=== PATIENT | female | born 1945 | race Caucasian/White ===

== ENCOUNTER 2018-04-15 08:54 | Inpatient (IN) ==
[2018-04-15] MEDS ORDERED: ASPIRIN PO ONE (09:29)
[2018-04-15] MEDS ORDERED: ZOFRAN IV ONE ×2 (09:31→13:30)
--- NOTE | 2018-04-15 09:39 | PROVIDER DOCUMENTATION ---
HPI-Chest Pain - General Chief Complaint: Weakness Stated Complaint: VOMITING Time Seen by Provider: 04/15/18 09:23 Source: patient Allergies/Adverse Reactions: Patient Allergies Allergy/AdvReac Type Severity Reaction Status Date / Time doxycycline Allergy RASH Verified 07/28/17 20:21 metoclopramide HCl * Allergy ANAPHYLAXIS Verified 07/28/17 20:21 [From [facility]] Home Medications: Home Medication List Medication Instructions Recorded Confirmed Last Taken Type Magnesium Citrate [Citrate of 300 ml PO ONCE #1 bottle 04/01/15 02/03/18 Rx Magnesia] 300 ML Metformin [Glucophage] 500 mg PO BID 04/01/15 02/03/18 02/02/18 History 500 MG Atorvastatin Calcium [Lipitor] 10 mg PO DAILY 07/28/17 02/03/18 02/02/18 History 10 MG Duloxetine HCl 60 mg PO DAILY 07/28/17 02/03/18 02/02/18 History 60 MG Omeprazole [Prilosec] 40 mg PO DAILY 07/28/17 02/03/18 02/02/18 History 40 MG Triamterene/Hydrochlorothiazid 1 cap PO DAILY 07/28/17 02/03/18 02/03/18 07:00 History [Triamterene-Hctz 37.5-25 mg Cp] 1 CAP Albuterol [Albuterol Neb] 2.5 mg INH Q4H PRN PRN #1 pkg 02/03/18 Unknown Rx Fluconazole [Diflucan] 150 mg PO DAILY #2 tab 02/03/18 Unknown Rx Levofloxacin [Levaquin] 750 mg PO DAILY #10 tab 02/03/18 Unknown Rx Nebulizer [Aeroneb Go Nebulizer] 1 ea MC Q4H PRN PRN #1 ea 02/03/18 Unknown Rx Prednisone 40 mg PO DAILY #10 tab 02/03/18 Unknown Rx - History of Present Illness-CP Nature of Presenting Problem: CC: "My chest has been hurting" Pt complains of left-sided chest pain that goes to left neck for two weeks. Worsens with exertion. Also complains of cough, chills, bodyache. +exposure to flu. Last stress test 5 years ago. Multiple cardiac risk factors. Location: reports: central Chest Pain Radiation: reports: neck Quality of Pain: reports: pressure Severity in ED: moderate Onset/Duration: other Timing: still present Context/Activities at Onset: reports: none Modifying Factors: improves with: other. worse with: nothing Associated Symptoms: reports: fatigue, fever/chills. denies: abdominal pain, back pain, diaphoresis, dizziness, edema, shortness of breath, syncope, weakness Nitro Today/Relief: no nitro taken today Aspirin Treatment Today: no aspirin today Similar Symptoms Previously?: No Recently Seen Here or By Another Healthcare Provider: No Review of Systems - Adult - REVIEW OF SYSTEMS - ADULT Constitutional: reports: see HPI, chills, fatique Eyes: reports: no symptoms reported Ears, Nose, Mouth & Throat: reports: no symptoms reported Cardiovascular: reports: see HPI, chest pain. denies: edema, palpitations Respiratory: reports: see HPI, cough. denies: hemoptysis, pleurisy, shortness of breath Gastrointestinal: reports: no symptoms reported. denies: abdominal pain Genitourinary: reports: no symptoms reported Musculoskeletal: reports: no symptoms reported. denies: back pain Integumentary: reports: no symptoms reported. denies: rash Neurological: reports: no symptoms reported Psychiatric: reports: no symptoms reported Endocrine: reports: no symptoms reported Hematologic/Lymphatic: reports: no symptoms reported Allergic/Immunologic: reports: no symptoms reported All Other Systems: Reviewed and Negative Past History - Adult - PAST MEDICAL HISTORY-ADULT Review of Records: reports: Old Records Reviewed, Nursing Assessment Review, Medications Reviewed, Social history reviewed & non-contributory. Major Childhood Illnesses: reports: denies history Cardiovascular: reports: HTN Respiratory: reports: denies history Gastrointestinal: reports: GERD, other (hiatal hernia) Obstetrical/Gynecological: reports: denies history Genitourinary: reports: denies history Musculoskeletal: reports: arthritis (RA), osteoporosis Neurological: reports: denies history Endocrine/Immune: reports: Diabetes Other Conditions: reports: denies history - PRIOR SURGERIES/PROCEDURES Surgical/Procedure History: reports: appendectomy, cholecystectomy, hysterectomy , back/neck (back), other (abdominal cyst removed) - IMMUNIZATION STATUS Childhood Immunizations: See Nurse Assessment Flu Vaccine: See Nurse Assessment - FAMILY HISTORY Family History: reviewed, not pertinent - SOCIAL HISTORY Smoking: denies Substance Use: none/never Alcohol Use Frequency: never Living Situation: family Physical Exam-General - PHYSICAL EXAM-ADULT Initial Vital Signs Reviewed: Yes - CONSTITUTIONAL General Appearance: appears well, alert, no apparent distress - EYES Eyes: pink conjunctivae - HEAD, EARS, NOSE, MOUTH & THROAT HENMT: moist mucous membranes - NECK Neck: supple - RESPIRATORY Respiratory: lungs clear, normal breath sounds - CARDIOVASCULAR Cardiovascular: normal peripheral pulses, regular rate, rhythm - GASTROINTESTINAL (ABDOMEN) Abdominal Exam: non tender, soft, no organomegaly, no pulsatile mass - MUSCULOSKELETAL Back Exam: normal inspection Extremity: normal gait, normal inspection, no pedal edema, no calf tenderness - SKIN Integumentary: normal color, normal turgor, warm/dry - NEUROLOGIC Neurologic: grossly normal Progress - PLAN OF CARE/RESULTS Progress/Plan/Lab Results: Vital Signs - 8 hr 04/15/18 09:05 Temperature 99.1 F Pulse Rate 87 Respiratory Rate 20 Blood Pressure 135/85 O2 Sat by Pulse Oximetry 92 L Laboratory Results - last 24 hr 04/15/18 04/15/18 04/15/18 09:38 09:43 09:43 WBC 6.23 RBC 4.66 Hgb 12.5 Hct 39.7 MCV 85.2 MCH 26.8 L MCHC 31.5 L RDW Std Deviation 16.3 H Plt Count 218 MPV 10.4 Immature Gran % (Auto) 0.2 Neut % (Auto) 75.4 H Lymph % (Auto) 11.7 L [place] % (Auto) 12.5 H Eos % (Auto) 0.0 Baso % (Auto) 0.2 Immature Gran # (Auto) 0.01 Neut # (Auto) 4.70 Lymph # (Auto) 0.73 L [place] # (Auto) 0.78 H Eos # (Auto) 0.00 Baso # (Auto) 0.01 PT INR PTT (Actin FS) Sodium Potassium Chloride Carbon Dioxide Anion Gap BUN Creatinine Estimated GFR/1.73 m2 BUN/Creatinine Ratio Glucose Calculated Osmolality Calcium Total Bilirubin AST ALT Alkaline Phosphatase Creatine Kinase Troponin T Gjp-O-Gysybllekzt Pept Total Protein Albumin Globulin Albumin/Globulin Ratio Plasma Lactate 1.8 Influenza A (Rapid) POSITIVE A Influenza B (Rapid) NEGATIVE 04/15/18 04/15/18 04/15/18 09:43 09:43 09:43 WBC RBC Hgb Hct MCV MCH MCHC RDW Std Deviation Plt Count MPV Immature Gran % (Auto) Neut % (Auto) Lymph % (Auto) [place] % (Auto) Eos % (Auto) Baso % (Auto) Immature Gran # (Auto) Neut # (Auto) Lymph # (Auto) [place] # (Auto) Eos # (Auto) Baso # (Auto) PT 13.1 INR 0.94 PTT (Actin FS) 26.6 Sodium 137 Potassium 4.1 Chloride 94 L Carbon Dioxide 29 Anion Gap 14 BUN 15 Creatinine 1.0 H Estimated GFR/1.73 m2 55 BUN/Creatinine Ratio 15 Glucose 143 H Calculated Osmolality 277 Calcium 8.8 Total Bilirubin 0.20 AST 65 H ALT 33 Alkaline Phosphatase 68 Creatine Kinase 41 Troponin T Jmn-V-Hjkbsfioqut Pept 287 Total Protein 6.2 L Albumin 3.9 Globulin 2.0 Albumin/Globulin Ratio 2.0 Plasma Lactate Influenza A (Rapid) Influenza B (Rapid) 04/15/18 09:43 WBC RBC Hgb Hct MCV MCH MCHC RDW Std Deviation Plt Count MPV Immature Gran % (Auto) Neut % (Auto) Lymph % (Auto) [place] % (Auto) Eos % (Auto) Baso % (Auto) Immature Gran # (Auto) Neut # (Auto) Lymph # (Auto) [place] # (Auto) Eos # (Auto) Baso # (Auto) PT INR PTT (Actin FS) Sodium Potassium Chloride Carbon Dioxide Anion Gap BUN Creatinine Estimated GFR/1.73 m2 BUN/Creatinine Ratio Glucose Calculated Osmolality Calcium Total Bilirubin AST ALT Alkaline Phosphatase Creatine Kinase Troponin T < 0.010 Arj-R-Ehiryllnfno Pept Total Protein Albumin Globulin Albumin/Globulin Ratio Plasma Lactate Influenza A (Rapid) Influenza B (Rapid) Orders Category Date Time Status Cardiac Monitoring DIRECTED Care 04/15/18 09:30 Active Saline Loc NOW Care 04/15/18 09:30 Active CHEST-PORTABLE [RAD] Stat Exams 04/15/18 09:29 Completed BLOOD CULTURE [BLDCUL] Stat Lab 04/15/18 09:58 Ordered CBC WITH ELECTRONIC DIFF [HEME] Stat Lab 04/15/18 09:43 Completed CK PROFILE [SP CHEM] Stat Lab 04/15/18 09:43 Completed COMPREHENSIVE METABOLIC PANEL [CHEM] Stat Lab 04/15/18 09:[address] Stat Lab 04/15/18 09:38 Completed LACTATE, PLASMA [CHEM] Stat Lab 04/15/18 09:43 Completed PRO B-NATRIURETIC PEPTIDE Stat Lab 04/15/18 09:43 Completed PROTIME WITH INR [COAG] Stat Lab 04/15/18 09:43 Completed PTT [COAG] Stat Lab 04/15/18 09:43 Completed TROPONIN T Stat Lab 04/15/18 09:43 Completed Aspirin Med 04/15/18 09:29 Discontinued 325 mg PO NOW ONE Nitroglycerin Med 04/15/18 10:45 Discontinued 0.5 inch TOP NOW ONE Ondansetron [Zofran] Med 04/15/18 09:31 Discontinued 4 mg IV NOW ONE CP/SOB/Palp >45 yrs of Age Stat Oth 04/15/18 09:29 Ordered EKG [EKG] Stat Ther 04/15/18 09:30 Draft Transfer/Admit Order [TRANSFER] Routine Transfer 04/15/18 10:[address] Mckeon Result Diagrams: 04/15/18 09:43 04/15/18 09:43 - EKG 1 Time of EKG reading by physician:: 09:35 EKG Read and Signed by:: Tatum Mckeon EKG Interpretation (*Must complete 3 of following elements*): Normal Rate: 83 Rhythm: nsr [place]: normal QRS: normal GA Interval: normal ST Wave: normal - XRAY 1 Impression: See EMR Report (EXAM: CHEST-PORTABLE HISTORY: cp TECHNIQUE: Chest single view COMPARISON: 02/03/2018 FINDINGS: The lungs are well expanded. The heart is not enlarged. The vessels are not distended. There are no infiltrates. No effusion identified. IMPRESSION: Negative exam.) - CONSULTS/PCP/HOSPITALIST Notification #1 *Consult/PCP/Hospitalist*: Dr. Castillo Time Discussed: 10:57 Consult Disposition: Admit Departure - Departure Date of Disposition Decision: 04/15/18 Time of Disposition Decision: 10:56 DIAGNOSIS: Influenza Chest pain Qualifiers: Chest pain type: unspecified Qualified Code(s): R07.9 - Chest pain, unspecified Disposition: ADMITTED INPATIENT 09 Certified Medical Emergency: Emergent Condition: Stable Referrals and Follow-Ups: None,PCP [Primary Care Provider] - - Critical Care Note This patient required my direct & personal management of CC.: No Attestation - Physician/ OLIVIA Attestation Patient care was provided by Advanced Practice Provider:: Yes Advanced Practice Provider:: Bebeto Barrera Advanced Practice Provider documentation review:: The Mid-level provider documentation, treatment plan and medical decision making was reviewed by the physician who agrees with all treatment and medical decision making by the MLP. The physician spent face to face time with patient:: No Advanced Practice Provider documentation review:: Supervising physician onsite and consulted in the evaluation and care of this patient. The physician did not have a face to face encounter with the patient.
[2018-04-15 10:07] LABS: BASO# 0.01 X1000 (0.0-0.2); BASO% 0.2 % (0.0-0.8); HEMATOCRIT 39.7 % (37.0-47.0); HEMOGLOBIN 12.5 g/dL (12.0-16.0); IMM GRAN# 0.01 X1000 (0.0-0.04); IMM GRAN% 0.2 % (0.0-0.5); LYMPH# 0.73 X1000 (1.2-3.4); LYMPH% 11.7 % (20.5-51.1); MCH 26.8 PG (27-31); MCHC 31.5 g/dL (33-37); MCV 85.2 FL (81-99); MONO# 0.78 X1000 (0.11-0.59); MONO% 12.5 % (1.7-9.3); MPV 10.4 FL (7.4-10.4); NEUT% 75.4 % (42.2-75.2); PLT 218 X1000 (130-400); RBC 4.66 XMIL (4.2-5.4); RDW 16.3 % (11.5-14.5); WBC 6.23 X1000 (4.8-10.8)
--- NOTE | 2018-04-15 10:15 | EKG Report ---
Test Performed on : 04/15/2018 09:31:20 AM Test Reason : chest pain Blood Pressure : / mmHG Vent. Rate : 083 BPM Atrial Rate : 083 BPM P-R Int : 132 ms QRS Dur : 096 ms QT Int : 410 ms P-R-T Axes : 037 023 029 degrees QTc Int : 481 ms Normal sinus rhythm. Normal ECG No previous ECGs available Unconfirmed Result
[2018-04-15 10:24] LABS: INR 0.94; PROTIME 13.1 Seconds (11.0-16.0)
[2018-04-15 10:25] LABS: PTT 26.6 Seconds (22.3-41.8)
--- NOTE | 2018-04-15 10:25 | Diag Imaging Result Doc PS360 ---
EXAM: CHEST-PORTABLE HISTORY: cp TECHNIQUE: Chest single view COMPARISON: 02/03/2018 FINDINGS: The lungs are well expanded. The heart is not enlarged. The vessels are not distended. There are no infiltrates. No effusion identified. IMPRESSION: Negative exam. Electronically signed by Kurtis Schrader 04/15/2018 10:23 AM
[2018-04-15 10:26] LABS: ALBUMIN 3.9 g/dL (3.5-5.0); CALCIUM 8.8 mg/dL (8.8-10.2); POTASSIUM 4.1 mmol/L (3.5-5.1); TOTAL BILIRUBIN 0.2 mg/dL (0.20-1.00); TOTAL PROTEIN 6.2 g/dL (6.3-8.3)
[2018-04-15 10:31] LABS: INFLUENZA A POSITIVE (NEGATIVE); INFLUENZA B NEGATIVE (NEGATIVE)
[2018-04-15] MEDS ORDERED: NITROGLYCERIN TOP ONE (10:45)
--- NOTE | 2018-04-15 14:43 | HISTORY AND PHYSICAL ---
PRIMARY CARE PHYSICIAN: Dr. Nesbitt. CHIEF COMPLAINT: Left-sided chest pain that radiated to her neck for 2 weeks, worsens with exertion. Also complained of a cough, chills, and body aches with exposure to the flu recently. HISTORY OF PRESENTING ILLNESS: This is a 73-year-old morbidly obese female, who presents to [facility] ER with complaints of left-sided chest pain that goes to her left neck for 2 weeks, that progressively has worsened. It worsens with exertion. She also states she has had a cough, chills, body ache, and a recent exposure to the flu. Her workup in the emergency room showed her first set of cardiac enzymes were negative. Influenza A was positive. Influenza B was negative. Chest x-ray was negative so she will be admitted for further evaluation and treatment. PAST MEDICAL HISTORY: Diabetes type 2, hyperlipidemia, GERD, hypertension, osteoarthritis, osteoporosis, bronchitis, fibromyalgia, rheumatoid arthritis, sleep apnea, and depression. PAST SURGICAL HISTORY: Appendectomy, cholecystectomy, and hysterectomy. FAMILY HISTORY: Reviewed and noncontributory. SOCIAL HISTORY: She lives with family. Smokes occasionally and denies any alcohol or illicit drug use. ALLERGIES: Doxycycline and metoclopramide. HOME MEDICATIONS: We will need to obtain a current list. Review and restart as appropriate. We will have nursing staff update and confirm home medications first. DIAGNOSTIC STUDIES: Laboratory data showed a white blood cell count of 6.23, hemoglobin of 12.5, hematocrit 39.7, platelets 218,000. PT of 13.1 and INR 0.94. Sodium 137, potassium 4.1, chloride 94, CO2 of 29, BUN of 15, creatinine 1, glucose 143. Cardiac enzyme was negative x1 set. ProBNP of 287. Plasma lactate 1.8. Influenza A was positive. Influenza B was negative. Chest x-ray showed a negative exam. EKG showed normal sinus rhythm at 83. REVIEW OF SYSTEMS: She denied any fever. She was positive for chills, body aches, chest pain that radiated to her left neck, nonproductive cough. Denied any abdominal pain, constipation, diarrhea, or burning or hurting with urination. PHYSICAL EXAMINATION: VITAL SIGNS: On arrival she had a temperature of 99.1 degrees, pulse 87, respirations 20, blood pressure 135/85, saturating 92% on room air. GENERAL: This is a 73-year-old female, who is lying in the bed and answers questions appropriately. HENT: Normocephalic, atraumatic. Normal ENT inspection. Oropharynx and nares are clear. EYES: Pupils are equal, round, and reactive to light and accommodation. Extraocular movements are intact. NECK: Normal inspection. Normal range of motion. LUNGS: With wheezing noted to the upper lung [place] bilaterally, appears to be more upper airway wheezing than true bronchial wheezing. Equal lung expansion and chest wall movement noted. HEART: Regular rate and rhythm. No murmurs, rubs, or gallops. ABDOMEN: Soft, nontender, nondistended. Bowel sounds are present x4 quadrants. MUSCULOSKELETAL: She has 5/5 strength x4 extremities. NEUROLOGICAL: The cranial nerves 2 through 12 are grossly intact. ASSESSMENT: 1. Chest pain. 2. Influenza A. 3. Diabetes, type 2. 4. Hypertension. PLAN: She will be admitted to the medical unit. Placed on telemetry. O2 per protocol. Diabetic diet. We need to update and confirm home medications, and then we will review and restart as appropriate. We will do serial cardiac enzymes for a total of 3 sets. Zofran 4 mg IV q.4 h, p.r.n., Tylenol [address] q[address] on Tamiflu 75 mg p.o. b.i.d. for 5 days. Further orders after seen by attending. Dictated by DANIA Lloyd for Young Castillo MD cc: DANIA Lloyd MD Stephen A. Branning, MD
[2018-04-15] MEDS ORDERED: ZOFRAN IV PRN (15:48)
[2018-04-15] MEDS ORDERED: ALBUTEROL NEB INH PRN (16:53)
[2018-04-15] MEDS: TAMIFLU PO SCH ×2 (18:01→21:01)
[2018-04-15] MEDS: GLUCOPHAGE PO SCH (18:01)
[2018-04-15] MEDS: TYLENOL PO PRN (18:06)
[2018-04-15] MEDS ORDERED: NS 1,000 ML IV ONE (20:46)
[2018-04-15] MEDS: CYMBALTA PO SCH (21:01)
--- NOTE | 2018-04-15 21:03 | HISTORY AND PHYSICAL ---
The patient was admitted for chest pain. According to the patient though, this chest pain has been going off and on for a while more than 2 weeks. She had a stress test about 5 years ago it was negative. She does have risk factors including diabetes but she has had more chest pain over last several days but it turns out she has influenza A which causes myalgias but somehow because the ER felt that she had too many risk factors to go home with chest pain she was placed in obs for chest pain. Any ways we will place her in obs, observe her, telemetry. I do not think it is safe or advisable to do a stress test right now plus we have a working alternative diagnosis frankly and we will go from there. This is a service admission. cc: Young Castillo MD
[2018-04-16] MEDS: TYLENOL PO PRN (02:13)
[2018-04-16] MEDS ORDERED: PRILOSEC PO SCH (07:00)
[2018-04-16] MEDS: TAMIFLU PO SCH ×2 (08:38→20:36)
[2018-04-16] MEDS: GLUCOPHAGE PO SCH (08:38)
[2018-04-16] MEDS ORDERED: PREDNISONE PO SCH (09:00)
[2018-04-16] MEDS ORDERED: TENORMIN PO SCH (09:00)
[2018-04-16] MEDS ORDERED: DYAZIDE PO SCH (09:00)
[2018-04-16] MEDS: HUMULIN R (PARKWAY) SUBQ SCH ×3 (11:36→17:28)
[2018-04-16] MEDS ORDERED: NORCO-7.5 PO ONE (13:19)
[2018-04-16] MEDS ORDERED: NORCO-7.5 PO PRN (13:19)
--- NOTE | 2018-04-16 15:02 | Diag Imaging Result Doc PS360 ---
EXAM: CT THORAX W/CONTRAST INDICATION: pneumonia TECHNIQUE: This exam was performed using automated exposure control, adjustment of mA or kV according to patient size, and/or use of iterative reconstruction technique. COMPARISON: 04/01/2015 FINDINGS: There is minimal linear atelectasis and/or scarring at both lung bases. The lungs are clear, otherwise. There is no airspace consolidation. There is no pleural fluid collection and no pneumothorax. There is no cardiomegaly. There is no evidence of significant mediastinal or hilar lymphadenopathy. There is no mediastinal fluid collection. Limited views of the upper abdomen reveals at least mild hepatic steatosis. IMPRESSION: Very mild subsegmental atelectasis versus scarring at the lung bases. No evidence of acute chest pathology. Electronically signed by Vikash Breen 04/16/2018 3:00 PM
[2018-04-16 15:30] VITALS: BP 145/79
--- NOTE | 2018-04-16 18:39 | PROGRESS NOTE ---
DATE: 04/16/2018 SUBJECTIVE: She is doing okay the following day. She is still having some chest discomfort, but her cardiac enzymes have been negative. Workup thus far has really been negative. I think this is all influenza A. Her CT really did not show any pneumonia. I am waiting on her echo report to see if there is anything going on there. The patient is doing well otherwise. DISPOSITION: Will likely be discharged today on Tamiflu. She can follow up as an outpatient for stress testing if required, although again, pain is very atypical. Reproducible with palpation. It just feels like this is very most likely just flu and possibly some chondritis, myalgias associated as such. Anticipate discharge soon. cc: Young Castillo MD
[2018-04-16] MEDS: CYMBALTA PO SCH (20:36)
[2018-04-16] MEDS ORDERED: LIPITOR PO SCH (21:00)
--- NOTE | 2018-04-16 21:34 | ECHO REPORT ---
ORDER DATE: 04/16/2018 INDICATION FOR THE PROCEDURE: Chest pain. FINDINGS: 1. Right atrium appears normal in size at 2.2 cm. 2. Trace tricuspid regurgitation. Insufficient data to adequately estimate RV systolic pressure. 3. Normal RV size and systolic function. 4. No significant pulmonic insufficiency. 5. Normal left atrial size at 3.9 cm. 6. No mitral prolapse. Mild mitral regurgitation. 7. Normal LV size, end-diastolic dimension of 4.1 cm. Mild left ventricular hypertrophy with a posterior and interventricular septal wall thickness of 1.3 cm each. Normal LV systolic function. Calculated ejection fraction of 64% with normal wall motion. 8. The aortic valve opens well with no evidence of stenosis or insufficiency. 9. The aorta appears normal in visualized segments. 10. No pericardial effusion seen. cc: MD Young Rainey MD
--- NOTE | 2018-04-17 14:09 | DISCHARGE SUMMARY ---
ADMISSION DATE: 04/15/2018 DISCHARGE DATE: 04/16/2018 PRIMARY CARE PHYSICIAN: Dr. Nesbitt. ADMISSION DIAGNOSES: 1. Chest pain. 2. Influenza A. 3. Diabetes type 2. 4. Hypertension. DISCHARGE DIAGNOSES: 1. Chest pain resolved. 2. Influenza A. 3. Diabetes type 2. 4. Hypertension. SUMMARY OF FINDINGS: A 73-year-old obese female who presented to the ER with complaints of left- sided chest pain that went into her left neck for 2 weeks, and progressively worsened. She states she has also had cough, chills, body ache, and recent exposure to the flu. Workup in the emergency room showed influenza A was positive. Influenza B was negative. Her cardiac enzymes x4 sets were negative. We did do a chest CT on 02/13/2019 that showed no evidence of acute chest pathology. Some very mild subsegmental atelectasis versus scarring at the lung bases. She was started on Tamiflu, and it is now felt that she can safely be discharged home. DISCHARGE MEDICATIONS: A prescription for [place] 7.5 one p.o. q.6 hours p.r.n. and for Tamiflu 75 mg p.o. b.i.d. #8 with no refills. She will continue her home medications of albuterol nebulizer q.4 hours p.r.n., atenolol 100 mg p.o. daily, atorvastatin 10 mg p.o. daily, duloxetine 60 mg p.o. at bedtime, metformin 500 mg p.o. b.i.d. nebulizer, Prilosec 40 mg p.o. daily, prednisone 40 mg p.o. daily, and triamterene/hydrochlorothiazide 37.5/25 p.o. daily. FOLLOW-UP: She will need to follow up with her primary care physician and call their office for an appointment. TIME SPENT: This is 35 minute discharge. Dictated by DANIA Lloyd for Young Castillo MD cc: DANIA Lloyd MD Stephen A. Branning, MD
== END 2018-04-16 20:42 | disposition home or self-care (01) | DRG 195 ==
LOC: P.ED 08:54 → P.MEDSURG 08:54 → OBSVTOIN 08:55
PROVIDERS: ADMIT Internal Medicine
CPT/HCPCS: 71010; 71045; 71260; 80053; 82550; 82948; 83605; 83880; 84484; 85025; 85610; 85730; 87040; 87275; 87276; 87804; 93005; 93306; 94761; 96374; 96376; 99285; A9270; J2405; J7030; J7506; J7512; Q9967; XXXXX